=== PATIENT | female | born 1955 | race Caucasian/White ===

== ENCOUNTER 2020-05-12 22:37 | Emergency (ER) | payer BC ==
[~2020-05-12] VITALS: Ht 170.2 cm; Wt 75.0 kg
[2020-05-12] MEDS ORDERED: LIDOcaine 1% W/epiNEPHrine 1:200,000 10ml vial IJ ONE (23:40)
[2020-05-12] MEDS ORDERED: cephalexin 250mg capsule PO ONE (23:40)
[2020-05-12] MEDS ORDERED: TETanus/Pertussis (Acell)/Diphther VAC/PF (Tdap-Adult) 0.5ml syringe IMVAC ONE (23:40)
[2020-05-12] MEDS ORDERED: bacitracin 15gm ointment TP ONE (23:40)
[2020-05-13] MEDS ORDERED: ondansetron 4mg rapidly disintigrating tab PO ONE
[2020-05-13] MEDS ORDERED: CEPH-572 PO (01:02)
[2020-05-13 01:24] VITALS: BP 143/83
== END 2020-05-13 01:28 | disposition home or self-care (01) ==
LOC: ER 22:37
DX: S81.812A Laceration without foreign body, left lower leg, initial encounter (principal); Z85.3 Personal history of malignant neoplasm of breast; Z72.89 Other problems related to lifestyle; Z79.899 Other long term (current) drug therapy; W01.198A Fall on same level from slipping, tripping and stumbling with subsequent striking against other object, initial encounter; Y93.89 Activity, other specified; Y92.89 Other specified places as the place of occurrence of the external cause; Y99.8 Other external cause status
CPT/HCPCS: 12034; 73590; 90471; 90715; 99284